=== PATIENT | female | born 1950 | race Caucasian/White ===

== ENCOUNTER 2018-05-10 08:34 | Outpatient (CLI) | payer MEDICARE ==
[2018-05-10] MEDS ORDERED: Iopamidol 370 76% 100 ML VIAL ONE (11:12)
--- NOTE | 2018-05-10 11:57 | CT ---
CT OF THE ABDOMEN: Date: 05/10/18 COMPARISON: None. HISTORY: Right upper quadrant pain with nausea. TECHNIQUE: Serial axial CT imaging obtained at 5 mm intervals through the abdomen with IV and oral contrast. Cor onal reformatted imaging obtained. The pelvis is not imaged on this exam. FINDINGS: Mild linear density in both lung bases suggests scar or volume loss. Clips in the right upper quadran t suggest prior cholecystectomy. There is debris within the stomach, not well evaluated on this exam. The liver, spleen, pancreas, and adrenal glands appear grossly unremarkable. There is a punctate, nonobstructing stone in the upper pole of the left kidney. There is a subcentime ter hypodensity in the mid pole of the right kidney, too small to characterize, measuring approximate ly 7.0 mm. Diverticula are noted in the region of the proximal descending colon. Imaged bowel demonstrates no ac [place] findings. Appendix appears unremarkable. Vascular structures of abdomen appear patent with no lym phadenopathy noted. Very small, fat-containing umbilical hernia present. Review of osseous structures demonstrate multilevel lower lumbar spine facet hypertrophic change. There is also prominent degener ative end plate change and disc space narrowing at L4-5 and L5-S1. IMPRESSION: No acute findings. Chronic-appearing findings as described above. POS: [facility]
== END 2018-05-10 08:35 | disposition home or self-care (01) ==
LOC: CT 08:34
PROVIDERS: ATTEND Internal Medicine
DX: R10.11 Right upper quadrant pain (principal); R11.0 Nausea; N20.0 Calculus of kidney; K57.30 Diverticulosis of large intestine without perforation or abscess without bleeding; K42.9 Umbilical hernia without obstruction or gangrene; R93.421 Abnormal radiologic findings on diagnostic imaging of right kidney; M47.816 Spondylosis without myelopathy or radiculopathy, lumbar region; M47.817 Spondylosis without myelopathy or radiculopathy, lumbosacral region; M48.061 Spinal stenosis, lumbar region without neurogenic claudication; M48.07 Spinal stenosis, lumbosacral region; Z90.49 Acquired absence of other specified parts of digestive tract
CPT/HCPCS: 74160

== ENCOUNTER 2018-07-04 07:59 | Outpatient (CLI) | payer MEDICARE ==
--- NOTE | 2018-07-04 09:59 | MRI ---
BRAIN MRI WITH AND WITHOUT CONTRAST: Date: 07-04-18 Comparison: None. History: Dizziness, lightheaded. Technique: Multiplanar, multisequence MRI imaging of the brain is provided with and without contrast. FINDINGS: The diffusion weighted imaging demonstrates no evidence for acute infarction. The axial gradient echo imaging demonstrates no evidence for intracranial hemorrhage. Partial opacification of the mastoid air cells are noted bilaterally, left greater than right. Arterial flow voids at the axial level of the skull base appear grossly unremarkable on the T2 weight ed imaging. No midline shift, mass effect or ventricular enlargement is noted. There are numerous foci of increased T2 and FLAIR signal seen within the periventricular, deep, and s ubcortical white matter, suggesting small vessel disease. The post contrast imaging demonstrates no abnormal enhancement within the brain parenchyma. IMPRESSION: 1. Findings suggesting small vessel disease. No intracranial hemorrhage or evidence of acute infarcti on. 2. Nonspecific partial opacification of the mastoid air cells as above. POS: [facility]
[2018-07-04] MEDS ORDERED: Gadobenate Dimeglumine 529 MG/1 ML (20ML VIAL) ONE (13:39)
== END 2018-07-04 08:00 | disposition home or self-care (01) ==
LOC: BICMRI 07:59
PROVIDERS: ATTEND Psychiatry & Neurology Neurology
DX: R42 Dizziness and giddiness (principal)
CPT/HCPCS: 70553; 82565; A9579

== ENCOUNTER 2019-01-09 12:37 | Outpatient (CLI) | payer MEDICARE ==
--- NOTE | 2019-01-09 13:04 | RAD ---
Chest 2 views HISTORY: Bronchitis. Dyspnea. COMPARISON: 08/16/2018. FINDINGS: Cardiac silhouette is unremarkable. Pulmonary vasculature are within normal limits. Mediast inum is midline. Ill-defined parenchymal opacity projects of the right infrahilar level without lobar consolidation. Hemidiaphragms remain visible. Right cardiac margin unremarkable. No evidence of pneumothorax or pleural fluid. IMPRESSION: Right infrahilar infiltrate, possibly related to an inflammatory/infectious process. Plea se consider radiographic follow-up after medical treatment to evaluate for clearing.
== END 2019-01-09 12:38 | disposition home or self-care (01) ==
LOC: RAD 12:37
PROVIDERS: ATTEND Internal Medicine
DX: J20.9 Acute bronchitis, unspecified (principal); R07.89 Other chest pain; R06.2 Wheezing; R91.8 Other nonspecific abnormal finding of lung field
CPT/HCPCS: 71046

== ENCOUNTER 2019-02-26 12:44 | Outpatient (CLI) | payer MEDICARE ==
--- NOTE | 2019-02-26 13:02 | RAD ---
RADIOGRAPH CHEST 2 VIEWS: DATE: 02/26/2019 HISTORY: Dyspnea FINDINGS: There is no airspace density, pulmonary edema, pleural effusion, pneumothorax, or cardiomegaly. IMPRESSION: No acute cardiopulmonary findings.
== END 2019-02-26 12:45 | disposition home or self-care (01) ==
LOC: RAD 12:44
PROVIDERS: ATTEND Internal Medicine Pulmonary Disease
DX: R06.00 Dyspnea, unspecified (principal)
CPT/HCPCS: 71046

== ENCOUNTER 2019-05-16 13:36 | Outpatient (CLI) | payer MEDICARE ==
[2019-05-16 14:13] LABS: #Eosinphils 0.2 thou/uL (0.0-0.7); #Lymphocytes 2.3 thou/uL (1.20-3.40); #Monocytes 0.7 thou/uL (0.11-0.59); #Neutrophils 4.2 thou/uL (1.40-6.50); %Basophils 0.6 % (0.0-1.0); %Monocytes 9.2 % (0.0-10.0); %Neutrophils 56.2 % (42.0-75.0); Hemoglobin 13.3 g/dL (12.0-16.0); Mean Corpuscular HGB CONC 33.7 g/dL (32.0-36.0); Mean Corpuscular Hemoglobin 29.8 pg (27.0-31.0); Mean Corpuscular Volume 88.5 fL (78.0-98.0); Mean Platelet Volume 7.7 fL (7.4-10.4); Platelet Count 221 thou/uL (130-400); RBC Distribution Width 12.6 % (11.5-14.5); Red Blood Cell (RBC) Count 4.47 mill/uL (4.20-5.40); White Blood Cell (WBC) Count 7.4 thou/uL (4.8-10.8)
[2019-05-16 14:21] LABS: Prothrombin Time 13.5 SEC (12.0-14.7)
[2019-05-16 14:30] LABS: Bacteria/HPF 3+ HPF (None Seen); Bilirubin Negative (Negative); Blood, Urine 1+ (Negative); Clarity Turbid (Clear); Glucose, Urine (Dipstick) Normal (Negative); Leukocyte 25 Leu/uL (Negative); Nitrite Negative (Negative); Protein, Urine (Dipstick) 20 mg/dL (Neg-Trace); RBC/HPF 0-3 HPF (0-3); Squamous Epithelial 21-50 HPF (0-3); Urobilinogen Normal mg/dL (Less than 2)
[2019-05-16 14:33] LABS: Anion Gap 11 mmol/L (10-20); BUN (Urea Nitrogen) 11 mg/dL (9.8-20.1); Calc. Creatinine Clearance 0 mL/min (70-130); Calcium 9.6 mg/dL (7.8-10.44); Carbon Dioxide 31 mmol/L (23-31); Chloride 102 mmol/L (98-107); Estimated GFR-MDRD 73; Glucose 97 mg/dL (80-115); Potassium 3.6 mmol/L (3.5-5.1); Sodium 140 mmol/L (136-145)
== END 2019-05-16 13:37 | disposition home or self-care (01) ==
LOC: LABBT 13:36
PROVIDERS: ATTEND Orthopaedic Surgery
DX: Z01.818 Encounter for other preprocedural examination (principal); M17.12 Unilateral primary osteoarthritis, left knee
CPT/HCPCS: 80048; 81001; 85025; 85610; 87081; 93005; 93010

== ENCOUNTER 2019-05-21 07:04 | Day surgery (SDC) | payer MEDICARE ==
[~2019-05-21 07:04] MED LIST: Acetaminophen 325 MG TAB PO PRN; Fentanyl 100 MCG/2 ML VIAL SLOW IVP PRN; HYDROcodone/Acetaminophen 10/325 mg Tablet PO PRN; Promethazine HCl 25 MG/ML VIAL IM PRN; Zolpidem Tartrate 5 MG TAB PO PRN; diphenhydrAMINE 25 MG CAP PO PRN; traMADol HCl 50 MG TAB PO PRN
[2019-05-21] MEDS ORDERED: Tranexamic Acid 1,000 MG/10 ML VIAL ONE (07:38)
[2019-05-21] MEDS ORDERED: Sodium Chloride 0.9% 100 ML ONE (07:38)
[2019-05-21] MEDS ORDERED: Fentanyl 100 MCG/2 ML VIAL ONE ×4 (08:04→12:24)
[2019-05-21] MEDS ORDERED: Midazolam HCl 2 mg/2 ml Vial ONE (08:04)
[2019-05-21] MEDS ORDERED: Ketorolac Tromethamine 30 MG/ML VIAL IVP PRN (08:48)
[2019-05-21] MEDS ORDERED: traMADol HCl 50 MG TAB PO PRN (08:48)
[2019-05-21] MEDS ORDERED: Promethazine HCl 25 MG/ML VIAL IM PRN (08:48)
[2019-05-21] MEDS ORDERED: Ondansetron PF 4 MG/2 ML Vial IVP PRN (08:48)
[2019-05-21] MEDS ORDERED: HYDROcodone/Acetaminophen 5/325 mg Tablet PO PRN ×2 (08:48)
[2019-05-21] MEDS ORDERED: Zolpidem Tartrate 5 MG TAB PO PRN (08:48)
[2019-05-21] MEDS ORDERED: Ropivacaine HCl/PF 250 ML in Premix Bag 1 BAG NERVE BLCK SCH (08:48)
[2019-05-21] MEDS ORDERED: Fentanyl 100 MCG/2 ML VIAL SLOW IVP PRN (08:49)
[2019-05-21] MEDS ORDERED: PROPOFOL 20 ML ONE (09:53)
[2019-05-21] MEDS ORDERED: Ondansetron PF 4 MG/2 ML Vial ONE ×2 (10:01→15:37)
[2019-05-21] MEDS ORDERED: Ketorolac Tromethamine 30 MG/ML VIAL ONE (11:51)
--- NOTE | 2019-05-21 12:02 | RAD ---
EXAM: XR Knee Lt 2 View PROVIDED CLINICAL HISTORY: Postop COMPARISON: None FINDINGS: Postoperative changes of left total knee arthroplasty are demonstrated. Postoperative soft tissue gas is seen. IMPRESSION: As above.
[2019-05-21] MEDS: Aspirin 81 mg Enteric Coated Tablet PO SCH ×2 (13:27→19:50)
[2019-05-21] MEDS: Ferrous Gluconate 324 MG TAB PO SCH ×2 (13:27→19:49)
[2019-05-21] MEDS: Multivitamin W/ Minerals 1 TAB PO SCH (13:27)
[2019-05-21] MEDS: Senokot S 8.6-50 MG TAB PO SCH ×2 (13:27→19:50)
[2019-05-21 13:30] VITALS: BMI 32.9
[2019-05-21] MEDS ORDERED: Ropivacaine 0.2% HCl/PF (40 MG/20 ML VIAL) ONE (13:49)
[2019-05-21] MEDS ORDERED: Ropivacaine 0.5% HCl/PF (150 MG/30 ML VIAL) ONE (13:49)
[2019-05-21] MEDS ORDERED: Ketorolac Tromethamine 30 MG/ML VIAL IVP SCH (14:00)
[2019-05-21] MEDS ORDERED: CEFAZOLIN 2 GM in Premix Bag 1 BAG IVPB SCH (14:00)
--- NOTE | 2019-05-21 14:01 | OP ---
DATE OF PROCEDURE: 05/21/2019 PREOPERATIVE DIAGNOSIS: Degenerative joint disease, left knee. POSTOPERATIVE DIAGNOSIS: Degenerative joint disease, left knee. PROCEDURE PERFORMED: Left total knee arthroplasty using Ben 3 femur, 3 tibia, 9 mm CS X3 polyethylene, and A29 patella off the triathlon system. PIPER INSTALLER: Mino Glover PA-C BLOOD LOSS: Minimal. SPECIMEN: None. DRAIN: None. COMPLICATION: None. TOURNIQUET TIME: 46 minutes. PROCEDURE IN DETAIL: After informed consent was obtained in the preoperative holding area, the patient was taken to the operative suite where general anesthesia was induced. Once adequate level of general anesthesia was obtained, the patient was positioned and a well-padded tourniquet was placed around the left proximal thigh. The left lower extremity was then prepped and draped in the usual sterile fashion. Prior to exsanguination, a time-out was called and all members of the surgical team agreed upon site, surgeon, and patient. The extremity was then exsanguinated and the tourniquet was raised. A midline longitudinal incision was then made directly over the patella extending 2 fingerbreadths above the superior pole of the patella and 2 fingerbreadths inferior to the inferior patellar pole of the patella. Deeper subcutaneous layers were dissected sharply and local bleeding was controlled with Bovie electrocautery. A quad tendon longitudinal split was then made sharply and a median parapatellar arthrotomy was carried out both sharp and with Bovie electrocautery, carried down to 1 fingerbreadth medial to the tibial tubercle. The knee was then placed into flexion and the patella was everted nicely, and a copious fat pad ectomy was performed allowing for greater exposure of the tibia. The computer-assisted distal femoral fiducial was then placed and pinned firmly, and the distal femoral cutting guide was pinned firmly into place. The oscillating saw was then used to remove the appropriate amount of bone. The 4-in-1 cutting block was then placed on the distal femur and the oscillating saw was used to remove the appropriate amount of bone off the anterior, posterior, and chamfer cuts. After completion of bone cuts, the anterior cruciate ligament was resected sharply and the posterior cruciate ligament retractor was placed and the tibia was subluxed for better exposure. Partial meniscectomies were carried out, and the tibial computer-assisted fiducial was pinned, and the cutting guide was placed. Oscillating saw was then used to remove the bone, with Hohmann retractors used to take care and protect the collateral ligaments. After the tibial resection was performed, a laminar wood experimental mechanic was placed in between the freshened bone cuts. The knee placed at 90 degrees and further bilateral meniscectomies were carried out, and the curved osteotome and curettage were used to remove any excess bone spurs in the posterior compartment. The trial femoral component, tibial baseplate were placed with the appropriate polyethylene trial insert with an appropriate polyethylene spacer and patellar button. The knee was taken through full range of motion with flexion and extension from 0 to 90 degrees and patellar broach squarely in the trochlea without any squinting or subluxation noted. The knee was also stable to varus and valgus stressing at 0, 15, 45, and 90 degrees of flexion. The drawer was negative. All trial components were then removed and the keel punch was used to provide the appropriate defect in the tibia with a mallet. The freshened bone cuts were copiously irrigated with pulsatile lavage of about 1.5 L to remove all excess debris. The freshened bone cuts were then dried with suction and lap sponge. The knee was placed in flexion and retractors were placed to provide access to all bone cuts. Tobramycin-impregnated methyl methacrylate cement was then placed on the freshened bone cuts and implants which were malleted firmly into place. Curettage and [place] elevators were used to remove any excess bone cement. The knee was placed into full extension and the patellar button was placed under compression, and the cement was allowed to cure. Once completed, the components were again taken through full range of motion and copious irrigation of the knee was carried out with another liter of normal saline. All components were inspected fully with full range of motion and varus and valgus stressing. There was no laxity noted and full extension was observed clinically. Primary closure was accomplished with #2 interrupted Vicryl stitch of the arthrotomy defect. This was oversewn with a #2 running Quill barbed stitch. The gravitational platelet system was then injected into the arthrotomy prior to closure. The subcutaneous layer was then closed with a running 0 barbed Monocryl stitch and skin closure accomplished with a running subcuticular 3-0 Monocryl barbed Quill stitch and augmented with cement on the skin. Tourniquet was lowered. Good spontaneous return of distal pulses was noted clinically and a sterile dressing was applied to the incision. The procedure was terminated without any complications. The patient was awakened in the operative suite, and the patient was taken to the recovery room in stable condition. Job ID: [id number]
[2019-05-21] MEDS: Sodium Chloride 0.9% 1,000 ML IV SCH ×2 (14:39→15:42)
[2019-05-21] MEDS ORDERED: Lidocaine 1% PF 5 ML VIAL ONE (15:37)
[2019-05-21] MEDS ORDERED: PROPOFOL 200 MG/20 ML VIAL ONE (15:37)
[2019-05-21] MEDS: CEFAZOLIN 2 GM in Premix Bag 1 BAG IVPB SCH (15:41)
[2019-05-21] MEDS: traMADol HCl 50 MG TAB PO PRN (17:17)
[2019-05-21] MEDS: Ketorolac Tromethamine 30 MG/ML VIAL IVP SCH (19:42)
[2019-05-21] MEDS: HYDROcodone/Acetaminophen 10/325 mg Tablet PO PRN (19:48)
[2019-05-22] MEDS: CEFAZOLIN 2 GM in Premix Bag 1 BAG IVPB SCH (00:24)
[2019-05-22] MEDS: Sodium Chloride 0.9% 1,000 ML IV SCH ×3 (03:00→23:34)
[2019-05-22] MEDS: Ketorolac Tromethamine 30 MG/ML VIAL IVP SCH ×3 (04:02→20:18)
[2019-05-22] MEDS: HYDROcodone/Acetaminophen 10/325 mg Tablet PO PRN ×3 (04:03→16:43)
[2019-05-22 06:25] LABS: Hemoglobin 12.1 g/dL (12.0-16.0); Mean Corpuscular HGB CONC 33.6 g/dL (32.0-36.0); Mean Corpuscular Hemoglobin 30.8 pg (27.0-31.0); Mean Corpuscular Volume 91.5 fL (78.0-98.0); Mean Platelet Volume 7.7 fL (7.4-10.4); Platelet Count 199 thou/uL (130-400); RBC Distribution Width 12.6 % (11.5-14.5); Red Blood Cell (RBC) Count 3.93 mill/uL (4.20-5.40); White Blood Cell (WBC) Count 7.1 thou/uL (4.8-10.8)
[2019-05-22] MEDS: Senokot S 8.6-50 MG TAB PO SCH ×2 (08:55→20:17)
[2019-05-22] MEDS: Multivitamin W/ Minerals 1 TAB PO SCH (08:55)
[2019-05-22] MEDS: Aspirin 81 mg Enteric Coated Tablet PO SCH ×2 (08:56→20:16)
[2019-05-22] MEDS: Ferrous Gluconate 324 MG TAB PO SCH ×2 (08:56→20:16)
--- NOTE | 2019-05-22 12:22 | PRG ---
DATE OF SERVICE: 05/22/2019 SUBJECTIVE: Carole is a 68-year-old female, who is postop day #1 from left total knee arthroplasty. She is doing very well. Her pain is well controlled. She has no issues currently. OBJECTIVE: VITAL SIGNS: Temperature 98.5, pulse 78, respiratory rate 18 and nonlabored, and blood pressure is 157/89. GENERAL: She is alert and oriented to person, place, time, and situation. Responsive, appropriate with examiner. Grossly nonfocal. EXTREMITIES: There is no erythema at the incision. No strike through is noted. She is neurovascularly intact in both lower extremities. LABORATORY DATA: Hemoglobin and hematocrit are 12.1 and 35.9. IMPRESSION: A 68-year-old female, postop day #1, left total knee arthroplasty, doing well. PLAN: Continue current care. Discharge home tomorrow. Job ID: [id number]
--- NOTE | 2019-05-22 15:41 | PDOC.HOSPP ---
- Subjective Encounter Date: 05/21/19 Encounter Time: 18:00 Subjective: pt up in bed no complains - Objective Vital Signs & Weight: Vital Signs (12 hours) Temp Pulse Resp BP Pulse Ox 05/22/19 14:48 98.2 F 81 16 153/71 H 92 L 05/22/19 11:55 97.9 F 78 16 156/80 H 92 L 05/22/19 04:07 98.5 F 78 18 157/89 H 95 Weight Admit Weight 180 lb Weight 180 lb I&O: 05/21/19 05/22/19 05/23/19 06:59 06:59 06:59 Intake Total 2880 Output Total 1550 Balance 1330 Result Diagrams: 05/23/19 04:41 Hospitalist ROS - Review of Systems Respiratory: denies: cough, dry, shortness of breath, hemoptysis, SOB with excertion, pleuritic pain, sputum, wheezing, other Cardiovascular: denies: chest pain, palpitations, orthopnea, paroxysmal noc. dyspnea, edema, light headedness, other Gastrointestinal: denies: nausea, vomiting, abdominal pain, diarrhea, constipation, melena, hematochezia, other - Medication Medications: Active Medications Generic Name Dose Route Start Last Admin Trade Name Freq PRN Reason Stop Dose Admin Hydrocodone Bitart/Acetaminophen 2 tab 05/21/19 07:00 05/22/19 08:56 [place] 10/325 PO 2 tab Q4H PRN Administration Severe Pain (7-10) Hydrocodone Bitart/Acetaminophen 2 tab 05/21/19 08:48 05/21/19 13:49 [place] 5/325 PO 2 tab Q4H PRN Administration For Moderate Pain 4-6 Aspirin 81 mg 05/21/19 09:00 05/22/19 08:56 Ecotrin PO 81 mg BID CAR Administration Ferrous Gluconate 324 mg 05/21/19 09:00 05/22/19 08:56 Fergon PO 324 mg BID CAR Administration Sodium Chloride 1,000 mls @ 100 mls/hr 05/21/19 07:00 05/22/19 03:00 Normal Saline 0.9% IV Not Given .Q10H CAR Ropivacaine 250 ml/ Device 250 mls @ 10 mls/hr 05/21/19 08:48 05/22/19 13:52 NERVE BLCK 250 mls INF CAR Administration As Directed Iron/Minerals/Multivitamins 1 tab 05/21/19 09:00 05/22/19 08:55 Theragran M PO 1 tab DAILY CAR Administration Ketorolac Tromethamine 15 mg 05/21/19 20:00 05/22/19 12:56 Toradol IVP 05/26/19 20:01 15 mg Q8H CAR Administration Ondansetron HCl 4 mg 05/21/19 08:48 05/21/19 13:50 Zofran IVP 4 mg Q6H PRN Administration Nausea/Vomiting Senna/Docusate Sodium 2 tab 05/21/19 09:00 05/22/19 08:55 Senokot S PO 2 tab BID CAR Administration Tramadol HCl 100 mg 05/21/19 08:48 05/21/19 17:17 Ultram PO 100 mg Q6H PRN Administration Moderate Pain 4-6 - Exam Neck: negative: supple, symmetric, no JVD, no thyromegaly, no lymphadenopathy, no carotid bruit, JVD Heart: negative: RRR, no murmur, no gallops, no rubs, normal peripheral pulses, irregular, diminshed peripheral pulses, murmur present, II/IV, III/IV Respiratory: negative: CTAB, no wheezes, no rales, no ronchi, normal chest expansion, no tachypnea, normal percussion, rales, rhonchi, tachypneic, wheezes Hosp A/P (1) Anxiety Code(s): F41.9 - ANXIETY DISORDER, UNSPECIFIED Status: Chronic (2) GERD (gastroesophageal reflux disease) Code(s): K21.9 - GASTRO-ESOPHAGEAL REFLUX DISEASE WITHOUT ESOPHAGITIS Status: Chronic (3) HTN (hypertension) Code(s): I10 - ESSENTIAL (PRIMARY) HYPERTENSION Status: Chronic - Plan will continue pt's home meds, vitals stable. will monitor.
[2019-05-22] MEDS: traMADol HCl 50 MG TAB PO PRN (20:15)
[2019-05-23] MEDS: HYDROcodone/Acetaminophen 10/325 mg Tablet PO PRN ×3 (00:32→14:23)
[2019-05-23 05:11] LABS: Hemoglobin 11.4 g/dL (12.0-16.0); Mean Corpuscular HGB CONC 33.7 g/dL (32.0-36.0); Mean Corpuscular Hemoglobin 30.4 pg (27.0-31.0); Mean Corpuscular Volume 90.2 fL (78.0-98.0); Mean Platelet Volume 7.9 fL (7.4-10.4); Platelet Count 191 thou/uL (130-400); RBC Distribution Width 12.5 % (11.5-14.5); Red Blood Cell (RBC) Count 3.76 mill/uL (4.20-5.40); White Blood Cell (WBC) Count 7.6 thou/uL (4.8-10.8)
[2019-05-23] MEDS: Ketorolac Tromethamine 30 MG/ML VIAL IVP SCH ×2 (05:29→13:08)
[2019-05-23] MEDS: Losartan 25 MG TAB PO SCH ×2 (08:44→08:51)
[2019-05-23] MEDS: Aspirin 81 mg Enteric Coated Tablet PO SCH (08:44)
[2019-05-23] MEDS: Multivitamin W/ Minerals 1 TAB PO SCH (08:45)
[2019-05-23] MEDS: Senokot S 8.6-50 MG TAB PO SCH (08:45)
[2019-05-23] MEDS: Ferrous Gluconate 324 MG TAB PO SCH (08:45)
[2019-05-23] MEDS ORDERED: Escitalopram Oxalate 20 mg Tablet PO SCH ×2 (09:00)
[2019-05-23] MEDS ORDERED: Non-Formulary Item 1 EACH (Olmesartan Medoxomil [Benicar] 40 MG) PO SCH (09:00)
--- NOTE | 2019-05-23 09:45 | PDOC.HOSPP ---
- Subjective Encounter Date: 05/22/19 Encounter Time: 13:00 Subjective: pt up in chair no complains - Objective Vital Signs & Weight: Vital Signs (12 hours) Temp Pulse Resp BP BP Pulse Ox 05/23/19 07:53 97.8 F 78 16 109/66 93 L 05/23/19 04:04 98.3 F 80 16 115/50 L 92 L 05/22/19 23:59 98.6 F 84 16 137/74 93 L Weight Admit Weight 180 lb Weight 180 lb I&O: 05/22/19 05/23/19 05/24/19 06:59 06:59 06:59 Intake Total 2880 Output Total 2550 Balance 330 Result Diagrams: 05/23/19 04:41 Hospitalist ROS - Review of Systems Cardiovascular: denies: chest pain, palpitations, orthopnea, paroxysmal noc. dyspnea, edema, light headedness, other Gastrointestinal: denies: nausea, vomiting, abdominal pain, diarrhea, constipation, melena, hematochezia, other Genitourinary: denies: dysuria, frequency, incontinence, hematuria, retention, other - Medication Medications: Active Medications Generic Name Dose Route Start Last Admin Trade Name Freq PRN Reason Stop Dose Admin Hydrocodone Bitart/Acetaminophen 2 tab 05/21/19 07:00 05/23/19 05:27 [place] 10/325 PO 2 tab Q4H PRN Administration Severe Pain (7-10) Hydrocodone Bitart/Acetaminophen 2 tab 05/21/19 08:48 05/21/19 13:49 [place] 5/325 PO 2 tab Q4H PRN Administration For Moderate Pain 4-6 Aspirin 81 mg 05/21/19 09:00 05/23/19 08:44 Ecotrin PO 81 mg BID CAR Administration Escitalopram Oxalate 20 mg 05/23/19 09:00 05/23/19 08:45 Lexapro PO 20 mg QAM CAR Administration Escitalopram Oxalate 20 mg 05/23/19 09:00 05/23/19 09:16 Lexapro PO 20 mg DAILY CAR Administration Fentanyl 50 mcg 05/21/19 08:49 05/22/19 16:43 Sublimaze SLOW IVP 50 mcg Q1H PRN Administration Breakthrough Pain Ferrous Gluconate 324 mg 05/21/19 09:00 05/23/19 08:45 Fergon PO 324 mg BID CAR Administration Sodium Chloride 1,000 mls @ 100 mls/hr 05/21/19 07:00 05/22/19 23:34 Normal Saline 0.9% IV Not Given .Q10H CAR Ropivacaine 250 ml/ Device 250 mls @ 10 mls/hr 05/21/19 08:48 05/22/19 13:52 NERVE BLCK 250 mls INF CAR Administration As Directed Iron/Minerals/Multivitamins 1 tab 05/21/19 09:00 05/23/19 08:45 Theragran M PO 1 tab DAILY CAR Administration Ketorolac Tromethamine 15 mg 05/21/19 20:00 05/23/19 05:29 Toradol IVP 05/26/19 20:01 15 mg Q8H CAR Administration Losartan Potassium 100 mg 05/23/19 09:00 05/23/19 08:51 Cozaar PO Not Given DAILY CAR Ondansetron HCl 4 mg 05/21/19 08:48 05/21/19 13:50 Zofran IVP 4 mg Q6H PRN Administration Nausea/Vomiting Senna/Docusate Sodium 2 tab 05/21/19 09:00 05/23/19 08:45 Senokot S PO 2 tab BID CAR Administration Tramadol HCl 100 mg 05/21/19 08:48 05/22/19 20:15 Ultram PO 100 mg Q6H PRN Administration Moderate Pain 4-6 - Exam Heart: negative: RRR, no murmur, no gallops, no rubs, normal peripheral pulses, irregular, diminshed peripheral pulses, murmur present, II/IV, III/IV Respiratory: negative: CTAB, no wheezes, no rales, no ronchi, normal chest expansion, no tachypnea, normal percussion, rales, rhonchi, tachypneic, wheezes Gastrointestinal: negative: soft, non-tender, non-distended, normal bowel sounds , no palpable masses, no hepatomegaly, no splenomegaly, no bruit, no guarding, no rigidity, tender to palpation, distended, diminished bowl sounds, voluntary guarding Hosp A/P (1) Anxiety Code(s): F41.9 - ANXIETY DISORDER, UNSPECIFIED Status: Chronic (2) GERD (gastroesophageal reflux disease) Code(s): K21.9 - GASTRO-ESOPHAGEAL REFLUX DISEASE WITHOUT ESOPHAGITIS Status: Chronic (3) HTN (hypertension) Code(s): I10 - ESSENTIAL (PRIMARY) HYPERTENSION Status: Chronic - Plan will continue pt's home meds, vitals stable. will monitor. 05/22 pt participating in therapy, vitals stable, will sign off.
[2019-05-23 11:51] VITALS: BP 132/71; TEMP 97.9
[2019-05-23] MEDS: Sodium Chloride 0.9% 1,000 ML IV SCH (13:08)
== END 2019-05-23 15:21 | disposition home or self-care (01) ==
LOC: SDC 07:04 → SJJU 07:05 → SDC 05-23 15:21
PROVIDERS: ATTEND Orthopaedic Surgery
PROC: 0SRD0J9 Replacement of Left Knee Joint with Synthetic Substitute, Cemented, Open Approach (ICD-10-PCS; principal; 2019-05-21)
DX: M17.12 Unilateral primary osteoarthritis, left knee (principal); I10 Essential (primary) hypertension; K21.9 Gastro-esophageal reflux disease without esophagitis; F41.9 Anxiety disorder, unspecified; Z79.52 Long term (current) use of systemic steroids; Z79.899 Other long term (current) drug therapy; Z88.1 Allergy status to other antibiotic agents; Z88.7 Allergy status to serum and vaccine; Z96.651 Presence of right artificial knee joint
CPT/HCPCS: 27447; 73560; 85027; 97110; 97116 ×3; 97139 ×2; 97150 ×2; 97530 ×2; C1713; C1776; 36415; J0131; J0690; J1885; J2250; J2405; J2704; J2795; J3010; J3370; J3490

== ENCOUNTER 2021-07-12 15:02 | Outpatient (CLI) | payer MEDICARE | END 2021-07-12 15:03 | disposition home or self-care (01) | LOC: BICMAMMO 15:02 | PROVIDERS: ATTEND Internal Medicine | DX: Z12.31 Encounter for screening mammogram for malignant neoplasm of breast (principal) | CPT/HCPCS: 77063; 77067 ==

== ENCOUNTER 2023-05-02 17:00 | Outpatient (CLI) | payer MEDICARE | END 2023-05-02 17:01 | disposition home or self-care (01) | LOC: SLEEPLAB 17:00 | PROVIDERS: ATTEND Internal Medicine | DX: G47.33 Obstructive sleep apnea (adult) (pediatric) (principal); R09.02 Hypoxemia | CPT/HCPCS: 95800 ==

== ENCOUNTER 2023-08-10 13:40 | Observation (INO) | payer MEDICARE, OTHER ==
[2023-08-10 14:20] LABS: #Monocytes 0.9 thou/uL (0.11-0.59); #Neutrophils 3.3 thou/uL (1.40-6.50); %Basophils 0.4 % (0.0-1.0); %Eosinophils 0.2 % (0.0-10.0); %Lymphocytes 14.2 % (21.0-51.0); %Monocytes 18.5 % (0.0-10.0); %Neutrophils 66.3 % (42.0-75.0); Hemoglobin 13.5 g/dL (12.0-16.0); Mean Corpuscular HGB CONC 33.8 g/dL (32.0-36.0); Mean Corpuscular Hemoglobin 29.6 pg (27.0-31.0); Mean Corpuscular Volume 87.7 fl (78.0-98.0); Mean Platelet Volume 9.8 fL (7.4-10.4); Platelet Count 181 10x3/uL (130-400); RBC Distribution Width 13.3 % (11.5-14.5); Red Blood Cell (RBC) Count 4.56 mill/uL (4.20-5.40); White Blood Cell (WBC) Count 4.9 10x3/uL (4.8-10.8)
[2023-08-10 14:44] LABS: ALT (SGPT) 10 U/L (8-55); AST (SGOT) 19 U/L (5-34); Albumin 4.2 g/dL (3.4-4.8); Alkaline Phosphatase 77 U/L (40-110); Anion Gap 16 mmol/L (10-20); BUN (Urea Nitrogen) 14 mg/dL (9.8-20.1); Bilirubin, Total 3.3 mg/dL (0.2-1.2); Calc. Creatinine Clearance 0 mL/min (70-130); Calcium 8.6 mg/dL (7.8-10.44); Carbon Dioxide 28 mmol/L (23-31); Chloride 93 mmol/L (98-107); Estimated GFR 63; Globulin 2.7 g/dL (2.4-3.5); Glucose 88 mg/dL (83-110); Protein, Total 6.9 g/dL (5.8-8.1); Sodium 134 mmol/L (136-145)
[2023-08-10 15:00] LABS: Potassium 2.5 mmol/L (3.5-5.1)
[2023-08-10] MEDS ORDERED: Potassium Chloride 20 MEQ/100 ML PREMIX BAG ONE (15:38)
[2023-08-10] MEDS ORDERED: Potassium Chloride 20 MEQ TAB ONE (15:38)
[2023-08-10] MEDS ORDERED: Doxycycline 100 MG CAP ONE (15:38)
[2023-08-10] MEDS ORDERED: Sodium Chloride 0.9% 100 ML ONE (15:39)
[2023-08-10] MEDS ORDERED: cefTRIAXone (ROCEPHIN) 1 GM VIAL ONE (15:39)
[2023-08-10] MEDS ORDERED: Magnesium 2 GM/50 ML BAG (IN WATER) ONE (15:41)
[2023-08-10] MEDS ORDERED: Ondansetron PF 4 MG/2 ML Vial ONE (16:38)
[2023-08-10] MEDS ORDERED: Acetaminophen 325 MG TAB PO PRN (17:34)
[2023-08-10] MEDS ORDERED: Azithromycin 500 MG in Sodium Chloride 0.9% 250 ML 250 ML IVPB SCH (17:45)
[2023-08-10] MEDS ORDERED: Electrolyte Replacement Protocol 1 EACH FS SCH (17:45)
[2023-08-10] MEDS ORDERED: Electrolyte Replacement Protocol FS PRN (18:00)
[2023-08-10 18:07] VITALS: BMI 33.8
[2023-08-10] MEDS ORDERED: Ipratropium/Albuterol 3 ML NEB NEB PRN (18:10)
[2023-08-10] MEDS ORDERED: predniSONE 20 MG TAB PO SCH (18:45)
[2023-08-10 19:33] LABS: Potassium 2.9 mmol/L (3.5-5.1)
[2023-08-10] MEDS ORDERED: Potassium Chloride 20 MEQ TAB PO SCH (20:00)
[2023-08-10] MEDS: Sodium Chloride 0.9% 1,000 ML IV SCH (20:05)
[2023-08-10] MEDS: Oseltamivir 75 MG CAP PO SCH (20:08)
[2023-08-10] MEDS: Potassium Chloride 20 MEQ TAB PO SCH (23:26)
[2023-08-11] MEDS: Doxycycline 100 MG in Sodium Chloride 0.9% 100 ML IVPB SCH ×2 (03:49→17:37)
[2023-08-11] MEDS: Potassium Chloride 20 MEQ TAB PO SCH (03:49)
[2023-08-11 04:46] LABS: #Monocytes 0.2 thou/uL (0.11-0.59); #Neutrophils 2.2 thou/uL (1.40-6.50); %Basophils 0.4 % (0.0-1.0); %Lymphocytes 15.2 % (21.0-51.0); %Monocytes 5.3 % (0.0-10.0); %Neutrophils 78.7 % (42.0-75.0); Hematocrit 38.2 % (36.0-47.0); Hemoglobin 12.9 g/dL (12.0-16.0); Mean Corpuscular HGB CONC 33.8 g/dL (32.0-36.0); Mean Corpuscular Hemoglobin 29.8 pg (27.0-31.0); Mean Corpuscular Volume 88.2 fl (78.0-98.0); Mean Platelet Volume 10.1 fL (7.4-10.4); Platelet Count 181 10x3/uL (130-400); RBC Distribution Width 13.1 % (11.5-14.5); Red Blood Cell (RBC) Count 4.33 mill/uL (4.20-5.40); White Blood Cell (WBC) Count 2.8 10x3/uL (4.8-10.8)
[2023-08-11 05:10] LABS: Anion Gap 14 mmol/L (10-20); BUN (Urea Nitrogen) 11 mg/dL (9.8-20.1); Calc. Creatinine Clearance 84 mL/min (70-130); Calcium 8.1 mg/dL (7.8-10.44); Carbon Dioxide 26 mmol/L (23-31); Chloride 101 mmol/L (98-107); Estimated GFR 80; Glucose 151 mg/dL (83-110); Potassium 3.5 mmol/L (3.5-5.1); Sodium 137 mmol/L (136-145)
[2023-08-11] MEDS ORDERED: Losartan 25 MG TAB PO SCH (09:00)
[2023-08-11] MEDS: Estradiol 1 MG TAB PO SCH (09:47)
[2023-08-11] MEDS: Oseltamivir 75 MG CAP PO SCH ×2 (09:48→20:55)
[2023-08-11] MEDS: predniSONE 20 MG TAB PO SCH (09:51)
[2023-08-11] MEDS: Escitalopram Oxalate 20 mg Tablet PO SCH (09:51)
[2023-08-11] MEDS ORDERED: BENICAR 40MG PO SCH (12:00)
[2023-08-11] MEDS: BENICAR 40MG PO SCH ×3 (12:13→12:32)
[2023-08-11] MEDS ORDERED: guaiFENesin/Codeine 200 mg/20 mg 10 ml Cup PO PRN (12:38)
[2023-08-11] MEDS ORDERED: cefTRIAXone\\ROCEPHIN 1 GM in Sodium Chloride 0.9% 100 ML IVPB SCH (16:00)
[2023-08-11] MEDS: Benzonatate 100 MG CAP PO SCH ×2 (16:13→20:55)
[2023-08-11] MEDS: Sodium Chloride 0.9% 1,000 ML IV SCH (16:17)
[2023-08-11 20:01] LABS: Legionella Urinary Ag Negative (Negative); Strep pneumo Urine Ag NEGATIVE (NEGATIVE)
[2023-08-12] MEDS: Doxycycline 100 MG in Sodium Chloride 0.9% 100 ML IVPB SCH (04:04)
[2023-08-12 08:18] VITALS: BP 167/76; TEMP 98
[2023-08-12 08:24] LABS: #Monocytes 0.6 thou/uL (0.11-0.59); #Neutrophils 2.4 thou/uL (1.40-6.50); %Basophils 0.4 % (0.0-1.0); %Eosinophils 0.2 % (0.0-10.0); %Lymphocytes 31.7 % (21.0-51.0); %Monocytes 14.1 % (0.0-10.0); %Neutrophils 53.2 % (42.0-75.0); Hematocrit 36.9 % (36.0-47.0); Mean Corpuscular HGB CONC 32.5 g/dL (32.0-36.0); Mean Corpuscular Hemoglobin 29.8 pg (27.0-31.0); Mean Corpuscular Volume 91.6 fl (78.0-98.0); Mean Platelet Volume 10.2 fL (7.4-10.4); Platelet Count 182 10x3/uL (130-400); RBC Distribution Width 13.3 % (11.5-14.5); Red Blood Cell (RBC) Count 4.03 mill/uL (4.20-5.40); White Blood Cell (WBC) Count 4.5 10x3/uL (4.8-10.8)
[2023-08-12] MEDS: BENICAR 40MG PO SCH (08:29)
[2023-08-12] MEDS: Benzonatate 100 MG CAP PO SCH (08:30)
[2023-08-12] MEDS: Oseltamivir 75 MG CAP PO SCH (08:30)
[2023-08-12] MEDS: Escitalopram Oxalate 20 mg Tablet PO SCH (08:30)
[2023-08-12] MEDS: Estradiol 1 MG TAB PO SCH (08:30)
[2023-08-12] MEDS: predniSONE 20 MG TAB PO SCH (08:30)
[2023-08-12 08:51] LABS: Anion Gap 10 mmol/L (10-20); BUN (Urea Nitrogen) 10 mg/dL (9.8-20.1); Calc. Creatinine Clearance 91 mL/min (70-130); Calcium 8.1 mg/dL (7.8-10.44); Carbon Dioxide 25 mmol/L (23-31); Chloride 107 mmol/L (98-107); Estimated GFR 88; Glucose 86 mg/dL (83-110); Potassium 3.2 mmol/L (3.5-5.1); Sodium 139 mmol/L (136-145)
== END 2023-08-12 10:49 | disposition home or self-care (01) ==
LOC: SUATTDRO 13:40 → ERS 13:40 → 2SW 17:34 → T4-A 08-11 17:42
PROVIDERS: ADMIT Internal Medicine; ATTEND Hospitalist
DX: J96.01 Acute respiratory failure with hypoxia (principal); J10.1 Influenza due to other identified influenza virus with other respiratory manifestations; J18.9 Pneumonia, unspecified organism; I10 Essential (primary) hypertension; E87.6 Hypokalemia; K21.9 Gastro-esophageal reflux disease without esophagitis; M19.90 Unspecified osteoarthritis, unspecified site; Z88.8 Allergy status to other drugs, medicaments and biological substances; Z90.49 Acquired absence of other specified parts of digestive tract; Z90.710 Acquired absence of both cervix and uterus; Z96.653 Presence of artificial knee joint, bilateral; Z79.899 Other long term (current) drug therapy
CPT/HCPCS: 36415; 71045; 80048; 80053; 84145; 85025; 86140; 87040; 87449; 87899; 93005; 94760; 96365; 96366; 96367; 96368; 96375; 96376; G0378; J0696; J2405; J3475; J3480; J3490; J7050; J7512

== ENCOUNTER 2023-10-08 16:00 | Outpatient (CLI) | payer MEDICARE | END 2023-10-08 16:01 | disposition home or self-care (01) | LOC: SLEEPLAB 16:00 | PROVIDERS: ATTEND Internal Medicine | DX: G47.33 Obstructive sleep apnea (adult) (pediatric) (principal); I10 Essential (primary) hypertension; M19.90 Unspecified osteoarthritis, unspecified site; K21.9 Gastro-esophageal reflux disease without esophagitis; R73.9 Hyperglycemia, unspecified; I49.3 Ventricular premature depolarization | CPT/HCPCS: 95811 ==